=== PATIENT | female | born 1985 | race Two or more races ===

== ENCOUNTER 2017-01-30 18:48 | Emergency (ER) | payer OTHER ==
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
--- NOTE | ~2017-01-30 | CR157 ---
[facility] A Service of [facility] RADIOLOGY TEXT RESULTS PATIENT: NAOMIE HARRELL LOCATION: CFTX : 83 UNIT #: [id number] AGE: [address]: REY WOODS APRN SEX: F ORDER DR: [id number] [facility] [address] [place], [place] [address] [id number] E MR#: [id number] Acc #: [id number] NAME: NAOMIE HARRELL : 1985 SEX: F STUDY DATE/TIME: 01/30/2017 19:29 UNIT: CFTX ROOM: STUDY DESCRIPTION: CR Humerus Min 2 View Rt Attending Physician: Rey Woods Aprn Referring Physician: Jacek Barraza M.D. Ordering Physician: Cruz Man M.D. [facility] REPORT This report is preliminary unless electronic signature is present EXAM Right humerus. HISTORY Right arm pain since this afternoon. FINDINGS There is no evidence of fracture, dislocation, or radiopaque foreign body. No focal bone lesions are seen. IMPRESSION Normal right humerus. Dictated by... Rufina Altamirano M.D. THIS IS AN ELECTRONICALLY VERIFIED REPORT Rufina Altamirano M.D. at 01/31/2017 2:05 PM Mono TD: 01/30/2017 21:54 JOB #: [id number] MEDICAL IMAGING REPORT Page 1 of 1 COPY
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
== END 2017-01-30 20:55 | disposition home or self-care (01) ==
LOC: CFTX 18:48
DX: S06.0X0A Concussion without loss of consciousness, initial encounter (principal); S40.021A Contusion of right upper arm, initial encounter; V49.40XA Driver injured in collision with unspecified motor vehicles in traffic accident, initial encounter; Y92.410 Unspecified street and highway as the place of occurrence of the external cause
CPT/HCPCS: 70450; 72040; 73060; 84703; 99284